=== PATIENT | male | born 1965 | race Caucasian/White ===

== ENCOUNTER 2017-02-06 10:22 | Emergency (ER) | payer BC ==
[~2017-02-06] VITALS: Ht 172.7 cm; Wt 80.0 kg
[~2017-02-06 10:22] MED LIST: ENDOCET1 TA1 OR; HEMORRHOID TOP; IBUPROFEN600 MG PO; KEFLEX500 MG PO; LEVAQUIN500 MG PO; LORTAB 10 PO; LORTAB 5/3255 MG PO; NO HOME MEDS; PERCOCET 5/321 COMBO PO; PERCOCET 5/325M1 TAB PO; TRAMADL/APAP PO
[2017-02-06] MEDS ORDERED: LORTAB 5-325 MG1 TAB PO (11:11)
[2017-02-06] MEDS ORDERED: KEFLEX500 MG PO (11:11)
[2017-02-06 11:26] VITALS: BP 145/85
== END 2017-02-06 11:49 | disposition home or self-care (01) | DRG 914 ==
LOC: ED 10:22
PROC: 0HQGXZZ Repair Left Hand Skin, External Approach (ICD-10-PCS; principal; 2017-02-06)
DX: S68.625A Partial traumatic transphalangeal amputation of left ring finger, initial encounter (principal); F17.210 Nicotine dependence, cigarettes, uncomplicated; W22.8XXA Striking against or struck by other objects, initial encounter; Y93.89 Activity, other specified; Y92.89 Other specified places as the place of occurrence of the external cause

== ENCOUNTER 2017-02-08 09:30 | Emergency (ER) | payer SELFPAY ==
[~2017-02-08] VITALS: Ht 172.7 cm; Wt 80.0 kg
[~2017-02-08 09:30] MED LIST changes: +LORTAB 5-325 MG1 TAB PO
[2017-02-08] MEDS ORDERED: PERCOCET 5/325M1 TAB PO (10:18)
[2017-02-08 10:31] VITALS: BP 148/70
== END 2017-02-08 10:45 | disposition home or self-care (01) | DRG 950 ==
LOC: ED 09:30
DX: S68.625D Partial traumatic transphalangeal amputation of left ring finger, subsequent encounter (principal)

== ENCOUNTER 2017-02-18 12:11 | Emergency (ER) | payer SELFPAY ==
[~2017-02-18] VITALS: Ht 172.7 cm; Wt 70.2 kg
[2017-02-18 12:32] VITALS: BP 145/89
== END 2017-02-18 12:36 | disposition home or self-care (01) | DRG 950 ==
LOC: ED 12:11
DX: S68.625D Partial traumatic transphalangeal amputation of left ring finger, subsequent encounter (principal)

== ENCOUNTER 2019-03-19 07:44 | Day surgery (SDC) | payer BC ==
[2019-03-19] MEDS ORDERED: PERCOCET 5/325M1 TAB PO (10:07)
[2019-03-19 10:56] VITALS: BP 137/81
== END 2019-03-19 11:15 | disposition home or self-care (01) | DRG 352 ==
LOC: ORM 07:44
PROVIDERS: ATTEND Surgery
PROC: 0YUA4JZ Supplement Bilateral Inguinal Region with Synthetic Substitute, Percutaneous Endoscopic Approach (ICD-10-PCS; principal; 2019-03-19)
DX: K40.20 Bilateral inguinal hernia, without obstruction or gangrene, not specified as recurrent (principal); F17.210 Nicotine dependence, cigarettes, uncomplicated
CPT/HCPCS: C1781; J0131; J1100; J2710

== ENCOUNTER 2019-10-13 | Emergency (ER) | payer SELFPAY ==
[2019-10-13] MEDS ORDERED: METHOCARBAMOL500 MG PO (16:47)
[2019-10-13] MEDS ORDERED: METHOCARBAM750 MG PO (17:13)
[2019-10-13] MEDS ORDERED: MEDDOSEPAK PO (17:50)
[2019-10-13] MEDS ORDERED: TRAMADOL HYDROC50 MG PO (17:50)
== END 2019-10-13 17:55 | disposition home or self-care (01) | DRG 563 ==
DX: S39.012A Strain of muscle, fascia and tendon of lower back, initial encounter (principal); M54.42 Lumbago with sciatica, left side; F17.210 Nicotine dependence, cigarettes, uncomplicated; X50.0XXA Overexertion from strenuous movement or load, initial encounter; Y93.89 Activity, other specified; Y92.89 Other specified places as the place of occurrence of the external cause; Y99.0 Civilian activity done for income or pay

== ENCOUNTER 2020-04-07 09:27 | Emergency (ER) | payer SELFPAY ==
[~2020-04-07] VITALS: Ht 172.7 cm; Wt 74.0 kg
[~2020-04-07 09:27] MED LIST changes: +MEDDOSEPAK PO; +METHOCARBAM750 MG PO; +METHOCARBAMOL500 MG PO; +TRAMADOL HYDROC50 MG PO
[2020-04-07 10:09] LABS: HEMOGLOBIN 12.9 g/dl (14.0-18.0); IMMATURE GRANULOCYTES 0.2 % (0.0-5.0); MEAN CORPUSCULAR HGB 33.6 pG CALC (26.0-32.0); MEAN CORPUSCULAR HGB CONC 33.9 g/dL CAL (32.0-36.0); NEUT# 3.56 thou/uL (1.82-7.42); RED BLOOD COUNT 3.84 mill/uL (4.70-6.10); RED CELL DISTRI WIDTH 12.9 % (11.5-15.5)
[2020-04-07 10:33] LABS: ALBUMIN 4.2 g/dL (3.2-5.0); ALKALINE PHOSPHATASE 127 u/l (38-126); ANION GAP 14 (6-22 (CALC)); BUN 6 mg/dL (9-20); BUN/CREATININE RATIO 8 (12-20 (CALC)); CARBON DIOXIDE 24 mmol/l (22-30); CHLORIDE 103 mmol/l (95-108); CREATININE 0.8 mg/dL (0.7-1.3); GFR > 60 ML/MIN (>=60 (CALC)); GFR FOR AFR.AMER. > 60 ML/MIN (>=60 (CALC)); POTASSIUM 3.6 mmol/l (3.5-5.1); SODIUM 137 mmol/l (137-146); TOTAL PROTEIN 7.4 g/dL (6.3-8.2)
[2020-04-07 10:36] LABS: BILIRUBIN, TOTAL 0.4 mg/dL (0.0-1.4); SGOT/AST 102 u/l (17-59)
[2020-04-07 11:58] VITALS: BP 125/69
== END 2020-04-07 11:58 | disposition left against medical advice (07) | DRG 93 ==
LOC: ED 09:27
PROVIDERS: Family Medicine
DX: G96.0 Cerebrospinal fluid leak (principal); S06.9X0D Unspecified intracranial injury without loss of consciousness, subsequent encounter; F17.210 Nicotine dependence, cigarettes, uncomplicated; X58.XXXD Exposure to other specified factors, subsequent encounter; Z91.19 Patient's noncompliance with other medical treatment and regimen

== ENCOUNTER 2020-07-10 12:52 | Emergency (ER) | payer SELFPAY ==
[~2020-07-10] VITALS: Ht 172.7 cm; Wt 69.0 kg
[2020-07-10] MEDS ORDERED: MOTRIN400 MG/TAB PO (13:55)
[2020-07-10] MEDS ORDERED: CYCLOBENZAPR5 MG PO (13:55)
[2020-07-10 14:19] VITALS: BP 131/82
== END 2020-07-10 14:37 | disposition home or self-care (01) | DRG 552 ==
LOC: ED 12:52
DX: M54.41 Lumbago with sciatica, right side (principal); I10 Essential (primary) hypertension; F17.210 Nicotine dependence, cigarettes, uncomplicated